=== PATIENT | male | born 1995 | race Two or more races ===

== ENCOUNTER 2019-01-07 00:10 | Emergency (ER) | payer OTHER ==
[~2019-01-07] VITALS: Ht 182.9 cm; Wt 86.2 kg
[2019-01-07] MEDS ORDERED: MECLIZINE HCL25 MG PO (06:30)
== END 2019-01-07 06:40 | disposition home or self-care (01) ==
LOC: ER 00:10
DX: R55 Syncope and collapse (principal)

== ENCOUNTER 2022-05-06 08:15 | Outpatient (CLI) | payer OTHER ==
[~2022-05-06 08:15] MED LIST: MECLIZINE HCL25 MG PO
== END 2022-05-06 08:28 | disposition home or self-care (01) ==
LOC: RAD 08:15
PROVIDERS: ATTEND Physical Medicine & Rehabilitation
DX: M25.512 Pain in left shoulder (principal); M54.6 Pain in thoracic spine; M54.50 Low back pain, unspecified